=== PATIENT | female | born 1960 | race Caucasian/White ===

== ENCOUNTER 2021-07-20 09:59 | Emergency (ER) | payer BC ==
[2021-07-20] MEDS ORDERED: Sodium Chloride 0.9% 10 ML Syringe FLUSH PRN (10:10)
[2021-07-20] MEDS ORDERED: Aspirin 81 MG Tab.Chew PO ONE (10:10)
--- NOTE | 2021-07-20 10:17 | EDM.PDOC ---
ED HPI GENERAL MEDICAL PROBLEM - General Chief Complaint: Chest Pain Stated Complaint: CHEST AND ARM PAIN Time Seen by Provider: 07/20/21 10:11 - History of Present Illness INITIAL COMMENTS - FREE TEXT/NARRATIVE: 61-year-old female presents the emergency room with chest pain arm pain and congestion. Patient developed some discomfort early last evening 12 to 14 hours ago. And it really has not improved. The patient has had some chest congestion since about . She has a dry nonproductive cough this has not been getting any worse but has not resolved. Patient does not have a history of coronary artery disease. She has never smoked. She is not on any routine medications. She did have the Covid vaccine but has not had the booster her second shot was in December. At times the discomfort feels like a pressure along her lower chest. The patient denies any fevers but sometimes she gets chilled and sweats. chest Pain Score (Numeric/FACES): 5 - Related Data Allergies Allergy/AdvReac Type Severity Reaction Status Date / Time No Known Allergies Allergy Verified 07/20/21 10:13 Home Meds: Home Meds Multivit #34/FA/Nadh/Ubiquinon [Xyzbac Tablet] 1 each PO DAILY 07/20/21 [History] ED ROS GENERAL - Review of Systems Review Of Systems: See Below Constitutional: Reports: Chills, Diaphoresis. Denies: Fever HEENT: Reports: No Symptoms Respiratory: Reports: No Symptoms Cardiovascular: Reports: Chest Pain Endocrine: Reports: No Symptoms GI/Abdominal: Reports: No Symptoms : Reports: No Symptoms Musculoskeletal: Reports: No Symptoms Skin: Reports: No Symptoms Neurological: Reports: No Symptoms ED EXAM, GENERAL - Physical Exam Exam: See Below Exam Limited By: No Limitations General Appearance: Alert, No Apparent Distress Eye Exam: Bilateral Eye: Normal Inspection, PERRL Ears: Normal External Exam, Normal Canal, Hearing Grossly Normal, Normal TMs Nose: Normal Inspection, Normal Mucosa, No Blood Throat/Mouth: Normal Inspection, Normal Lips, Normal Teeth, Normal Gums, Normal Oropharynx, Normal Voice, No Airway Compromise Head: Atraumatic, Normocephalic Neck: Normal Inspection, Supple, Non-Tender, Full Range of Motion. No: Lymphadenopathy (L), Lymphadenopathy (R) Respiratory/Chest: No Respiratory Distress, Lungs Clear, Normal Breath Sounds Cardiovascular: Regular Rate, Rhythm, No Edema, No Murmur GI/Abdominal: Normal Bowel Sounds, Soft, Non-Tender Back Exam: Normal Inspection. No: CVA Tenderness (L), CVA Tenderness (R) Extremities: Normal Inspection, No Pedal Edema Neurological: Alert, Oriented, Normal Cognition #1 Interpretation EKG Date: 07/20/21 Rhythm: NSR Rate (Beats/Min): 95 [place]: Normal P-Wave: Present QRS: Other (Low voltage extremity and precordial leads) ST-T: Normal QT: Normal Comparison: NA - No Prior EKG EKG Interpretation Comments: Abnormal Course - Vital Signs Last Recorded V/S: Last Vital Signs Temp 36.2 C 07/20/21 10:10 Pulse 99 07/20/21 10:10 Resp 19 07/20/21 10:10 BP 169/95 H 07/20/21 10:10 Pulse Ox 95 07/20/21 10:10 - Orders/Labs/Meds Orders: Active Orders 24 hr Category Date Time Status Cardiac Monitoring [RC] . DIRECTED Care 07/20/21 10:10 Active Communication Order [RC] ASDIRECTED Care 07/20/21 10:10 Active Communication Order [RC] ASDIRECTED Care 07/20/21 10:10 Active Oxygen Therapy [RC] ASDIRECTED Care 07/20/21 10:10 Active Peripheral IV Care [RC] . DIRECTED Care 07/20/21 10:11 Active Nitroglycerin [Nitrostat] Med 07/20/21 10:23 Active 0.4 mg SL Q5M PRN Sodium Chloride 0.9% [Normal Saline] 1,000 ml Med 07/20/21 10:30 Active IV ASDIRECTED Sodium Chloride 0.9% [Saline Flush] Med 07/20/21 10:10 Active 10 ml FLUSH ASDIRECTED PRN Peripheral IV Insertion Adult [OM.PC] Stat Oth 07/20/21 10:10 Ordered Medication Orders Sodium Chloride (Normal Saline) 1,000 mls @ 50 mls/hr IV ASDIRECTED [facility] Last Admin: 07/20/21 10:38 Dose: 50 mls/hr Documented by: MATIAS Nitroglycerin (Nitroglycerin 0.4 Mg Tab.Sl) 0.4 mg SL Q5M PRN PRN Reason: Chest Pain Sodium Chloride (Sodium Chloride 0.9% 10 Ml Syringe) 10 ml FLUSH ASDIRECTED PRN PRN Reason: Keep Vein Open Last Admin: 07/20/21 10:17 Dose: 10 ml Documented by: MATIAS Labs: Laboratory Tests 07/20/21 07/20/21 07/20/21 Range/Units 10:07 10:07 10:07 WBC 5.58 (3.98-10.04) K/mm3 RBC 5.33 H (3.98-5.22) M/mm3 Hgb 15.3 (11.2-15.7) gm/dl Hct 46.1 H (34.1-44.9) % MCV 86.5 (79.4-94.8) fl MCH 28.7 (25.6-32.2) pg MCHC 33.2 (32.2-35.5) g/dl RDW Std Deviation 42.0 (36.4-46.3) fL Plt Count 278 (182-369) K/mm3 MPV 9.2 L (9.4-12.3) fl Neut % (Auto) 61.1 (34.0-71.1) % Lymph % (Auto) 31.5 (19.3-51.7) % Forrest % (Auto) 6.3 (4.7-12.5) % Eos % (Auto) 0.7 (0.7-5.8) Baso % (Auto) 0.2 (0.1-1.2) % Neut # (Auto) 3.41 (1.56-6.13) K/mm3 Lymph # (Auto) 1.76 (1.18-3.74) K/mm3 Forrest # (Auto) 0.35 (0.24-0.36) K/mm3 Eos # (Auto) 0.04 (0.04-0.36) K/mm3 Baso # (Auto) 0.01 (0.01-0.08) K/mm3 PT 10.3 (9.7-12.0) SECONDS INR 0.93 D-Dimer, Quantitative 0.31 (0.19-0.50) mg/L Sodium 139 (136-145) mEq/L Potassium 4.0 (3.5-5.1) mEq/L Chloride 105 (98-107) mEq/L Carbon Dioxide 24 (21-32) mEq/L Anion Gap 14.0 (5-15) BUN 18 (7-18) mg/dL Creatinine 1.2 H (0.55-1.02) mg/dL Est Cr Clr Drug Dosing 39.43 mL/min Estimated GFR (MDRD) 46 (>60) mL/min BUN/Creatinine Ratio 15.0 (14-18) Glucose 124 H (70-99) mg/dL Calcium 9.1 (8.5-10.1) mg/dL Magnesium 2.2 (1.8-2.4) mg/dL Total Bilirubin 0.3 (0.2-1.0) mg/dL AST 23 (15-37) U/L ALT 42 (14-59) U/L Alkaline Phosphatase 91 (46-116) U/L Troponin I < 0.017 (0.00-0.056) ng/mL NT-Pro-B Natriuret Pep (0-125) pg/mL Total Protein 8.1 (6.4-8.2) g/dl Albumin 4.1 (3.4-5.0) g/dl Globulin 4.0 gm/dL Albumin/Globulin Ratio 1.0 (1-2) SARS-CoV-2 RNA ([facility]N) (NEGATIVE) 07/20/21 07/20/21 Range/Units 10:07 10:09 WBC (3.98-10.04) K/mm3 RBC (3.98-5.22) M/mm3 Hgb (11.2-15.7) gm/dl Hct (34.1-44.9) % MCV (79.4-94.8) fl MCH (25.6-32.2) pg MCHC (32.2-35.5) g/dl RDW Std Deviation (36.4-46.3) fL Plt Count (182-369) K/mm3 MPV (9.4-12.3) fl Neut % (Auto) (34.0-71.1) % Lymph % (Auto) (19.3-51.7) % Forrest % (Auto) (4.7-12.5) % Eos % (Auto) (0.7-5.8) Baso % (Auto) (0.1-1.2) % Neut # (Auto) (1.56-6.13) K/mm3 Lymph # (Auto) (1.18-3.74) K/mm3 Forrest # (Auto) (0.24-0.36) K/mm3 Eos # (Auto) (0.04-0.36) K/mm3 Baso # (Auto) (0.01-0.08) K/mm3 PT (9.7-12.0) SECONDS INR D-Dimer, Quantitative (0.19-0.50) mg/L Sodium (136-145) mEq/L Potassium (3.5-5.1) mEq/L Chloride (98-107) mEq/L Carbon Dioxide (21-32) mEq/L Anion Gap (5-15) BUN (7-18) mg/dL Creatinine (0.55-1.02) mg/dL Est Cr Clr Drug Dosing mL/min Estimated GFR (MDRD) (>60) mL/min BUN/Creatinine Ratio (14-18) Glucose (70-99) mg/dL Calcium (8.5-10.1) mg/dL Magnesium (1.8-2.4) mg/dL Total Bilirubin (0.2-1.0) mg/dL AST (15-37) U/L ALT (14-59) U/L Alkaline Phosphatase (46-116) U/L Troponin I (0.00-0.056) ng/mL NT-Pro-B Natriuret Pep 77 (0-125) pg/mL Total Protein (6.4-8.2) g/dl Albumin (3.4-5.0) g/dl Globulin gm/dL Albumin/Globulin Ratio (1-2) SARS-CoV-2 RNA ([facility]) Negative (NEGATIVE) Meds: Medications Generic Name Dose Route Start Last Admin Trade Name Freq PRN Reason Stop Dose Admin Sodium Chloride 1,000 mls @ 50 mls/hr 07/20/21 10:30 07/20/21 10:38 Normal Saline IV 50 mls/hr ASDIRECTED SEVERO Administration Nitroglycerin 0.4 mg 07/20/21 10:23 Nitroglycerin 0.4 Mg Tab.Sl SL Q5M PRN Chest Pain Sodium Chloride 10 ml 07/20/21 10:10 07/20/21 10:17 Sodium Chloride 0.9% 10 Ml Syringe FLUSH 10 ml ASDIRECTED PRN Administration Keep Vein Open Discontinued Medications Generic Name Dose Route Start Last Admin Trade Name [place] PRN Reason Stop Dose Admin Aspirin 324 mg 07/20/21 10:10 07/20/21 10:18 Aspirin 81 Mg Tab.Chew PO 07/20/21 10:11 324 mg ONETIME ONE Administration - Re-Assessments/Exams Free Text/Narrative Re-Assessment/Exam: 07/20/21 11:30 Patient's work-up is pretty unremarkable. She has a nonproductive cough that is been going on approaching 4 weeks. If this is a viral bronchitis that should be getting better any time. We will hold off on antibiotics. From a cardiac perspective the patient did not want to use the nitro because she was not having pain. Did discuss the heart score and applied her situation to it she has a heart score of 3 one-point for her age 1 point for being moderately suspicious and a point for risk factors basically she is overweight troponins normal EKG does not show any signs of ischemia. She understands is a 1.7% risk of major acute coronary event within the next 6 weeks. I have recommended she follow-up with her regular physician discuss the pros and cons of cardiac stress testing. Departure - Departure Time of Disposition: 11:32 Disposition: Home, Self-Care 01 Clinical Impression: Chest pain, Bronchitis - Discharge Information Referrals: PCP,None [Primary Care Provider] - Forms: ED Department Discharge Additional Instructions: Return to the emergency room with any questions problems or worsening symptoms. Start a baby aspirin daily 81 mg enteric-coated. Follow-up in the hospital clinic to establish care with a provider. Discussed the pros and cons of cardiac stress testing. The phone number to the hospital clinic is [phone] Sepsis Event Note (ED) - Focused Exam Vital Signs: Vital Signs Temp Pulse Resp BP Pulse Ox 07/20/21 10:10 36.2 C 99 19 169/95 H 95 - My Orders Last 24 Hours: My Active Orders 07/20/21 10:10 Cardiac Monitoring [RC] . DIRECTED Communication Order [RC] ASDIRECTED Communication Order [RC] ASDIRECTED Oxygen Therapy [RC] ASDIRECTED Sodium Chloride 0.9% [Saline Flush] 10 ml FLUSH ASDIRECTED PRN Peripheral IV Insertion Adult [OM.PC] Stat 07/20/21 10:11 Peripheral IV Care [RC] . DIRECTED 07/20/21 10:23 Nitroglycerin [Nitrostat] 0.4 mg SL Q5M PRN 07/20/21 10:30 Sodium Chloride 0.9% [Normal Saline] 1,000 ml IV ASDIRECTED - Assessment/Plan Last 24 Hours: My Active Orders 07/20/21 10:10 Cardiac Monitoring [RC] . DIRECTED Communication Order [RC] ASDIRECTED Communication Order [RC] ASDIRECTED Oxygen Therapy [RC] ASDIRECTED Sodium Chloride 0.9% [Saline Flush] 10 ml FLUSH ASDIRECTED PRN Peripheral IV Insertion Adult [OM.PC] Stat 07/20/21 10:11 Peripheral IV Care [RC] . DIRECTED 07/20/21 10:23 Nitroglycerin [Nitrostat] 0.4 mg SL Q5M PRN 07/20/21 10:30 Sodium Chloride 0.9% [Normal Saline] 1,000 ml IV ASDIRECTED
[2021-07-20] MEDS ORDERED: Nitroglycerin 0.4 MG Tab.SL SL PRN (10:23)
[2021-07-20] MEDS ORDERED: Sodium Chloride 0.9% 1,000 ML IV SCH (10:30)
--- NOTE | 2021-07-20 10:42 | CR ---
Chest: Portable view of the chest was obtained. Comparison: No prior chest imaging is available. Heart size and mediastinum are within normal limits. Lungs are clear with no acute parenchymal change. Bony structures show nothing acute. Impression: 1. Nothing acute is seen on portable chest x-ray. Diagnostic code #1
== END 2021-07-20 11:51 | disposition home or self-care (01) ==
LOC: JD.ED 09:59
DX: J40 Bronchitis, not specified as acute or chronic (principal); R94.31 Abnormal electrocardiogram [ECG] [EKG]; Z20.822 Contact with and (suspected) exposure to COVID-19
CPT/HCPCS: 36415; 71045; 80053; 83735; 83880; 84484; 85025; 85379; 85610; 87635; 93005; 99285; A9270; J7030; U0002